=== PATIENT | female | born 1950 | race Caucasian/White ===

== ENCOUNTER 2019-11-20 19:10 | Emergency (ER) | payer MEDICARE, SELFPAY ==
[2019-11-20 19:20] VITALS: BP 135/71; PULSE 58; RESP 18; TEMP 36.7; O2SAT 99
--- NOTE | 2019-11-20 19:46 | ED.GENADULT ---
HPI - General Adult General Chief complaint: Skin/Abscess/Foreign Body Stated complaint: cut to nose and eye Time Seen by Provider: 11/20/19 19:46 Source: patient and RN notes reviewed Mode of arrival: ambulatory Limitations: no limitations History of Present Illness HPI narrative: 69-year-old female present with complaints of laceration to bridge of nose caused by hitting nose on floor when she fell getting out the shower approximately 1 hour ago. Pressure applied to wound to control bleeding. Denies hitting head or loss of consciousness. Denies blurred vision, double vision, dizziness, or seizure activity. Denies vertigo or immobility. Denies pain, numbness or tingling, or weakness of upper or lower extremities. No foreign body sensation. Tetanus not up-to-date, last one unknown and she refuses it now (wants to speak with her PMD). Denies fever or chills. Denies diarrhea, nausea, vomiting, and abdominal pain. Tolerating po intake well. Denies headaches, weakness, fatigue, myalgia, or facial swelling. Denies chest pain or dyspnea. Denies cough, rhinorrhea, congestion, sore throat. Denies recent traveling. Denies concern for COVID-19 or exposures been home since [id number] order except for essential household needs and return home. Some parts of this dictation were generated by voice recognition software and may contain typographical and/or grammatical inaccuracies Related Data Home Medications Medication Instructions Recorded Confirmed aspirin 81 mg PO DAILY 11/20/19 11/20/19 atorvastatin 20 mg PO HS 11/20/19 11/20/19 cholecalciferol (vitamin D3) 50 mcg PO DAILY 11/20/19 11/20/19 [Vitamin D3] clobetasol 1 applic TOPICAL BID 11/20/19 11/20/19 levothyroxine 75 mcg PO DAILY 11/20/19 11/20/19 metronidazole 1 applic TOPICAL BID 11/20/19 11/20/19 omega 2-azj-ndv-fish oil [Fish Oil] 1 cap PO DAILY 11/20/19 11/20/19 trazodone 100 mg PO HS 11/20/19 11/20/19 valsartan-hydrochlorothiazide 1 tablet PO DAILY 11/20/19 11/20/19 Allergies Allergy/AdvReac Type Severity Reaction Status Date / Time Sulfa (Sulfonamide Allergy Shakiness Verified 11/20/19 19:32 Antibiotics) Review of Systems Review of Systems: Narrative: CONSTITUTIONAL: Denies fever, chills, sweats. EYES: Denies visual changes, redness, discharge. ENT: Denies rhinorrhea, congestion, sore throat, otalgia. CARDIOVASCULAR: Denies chest pain, palpitations, edema. RESPIRATORY: Denies dyspnea, wheezing, cough. GASTROINTESTINAL: Denies abdominal pain, nausea, vomiting, diarrhea. GENITOURINARY: Denies dysuria, hematuria, abnormal discharge. SKIN: Complains of laceration to bridge of nose. MUSCULOSKELETAL: Denies acute back pain, joint pain, or myalgia. NEUROLOGIC: Denies numbness, or focal weakness. PSYCHIATRIC: Denies anxiety or depression. All other systems reviewed & are unremarkable except as noted in HPI and below. [facility] Past Medical History Medical History (Updated 11/21/19 @ 14:08 by ANDREINA Winston) Anxiety Hypercholesteremia Hypertension Hypothyroidism Rosacea Surgical History Surgical History (Updated 11/21/19 @ 14:08 by ANDREINA Winston) History of adenoidectomy History of cholecystectomy History of eye surgery eye lift History of right knee surgery History of tonsillectomy Family History Family History (Updated 11/20/19 @ 20:09 by ANDREINA Winston) Father Leukemia Mother Bladder cancer Social History Social History (Updated 11/20/19 @ 20:09 by ANDREINA Winston) Smoking status: Never smoker Second hand tobacco smoke exposure: No Alcohol intake: current Substance use: never Living arrangements: with family Occupation/Education: retired Gender identity (if verbalized by the patient): Female Comments At time of signature, agree with nurse past medical, surgical, social, and family history. There is no relevant family history pertinent to the presenting co
== END 2019-11-20 20:05 | disposition home or self-care (01) ==
PROVIDERS: Emergency Provider Nurse Practitioner Family; PCP Internal Medicine
DX: S01.21XA Laceration without foreign body of nose, initial encounter (principal); W19.XXXA Unspecified fall, initial encounter; I10 Essential (primary) hypertension; E03.9 Hypothyroidism, unspecified; E78.00 Pure hypercholesterolemia, unspecified
CPT/HCPCS: 12011; 99212; G0463

== ENCOUNTER 2022-03-14 01:41 | Day surgery (SDC) | payer MEDICARE, SELFPAY ==
[2022-03-01 10:40] VITALS: BMI 28.9
--- NOTE | 2022-03-13 13:41 | PM.HPGS ---
History of Present Illness History of Present Illness Consent: Risks, benefits, and alternatives have been discussed and questions answered. Patient agrees to proceed with procedure. Chief complaint: hx colon polyps Narrative: Collette Hdz is a 71 year old female Referred for colon cancer screening. She has had a tubular adenoma removed about 10 years ago. Her last colonoscopy was 5 years ago. Review of Systems Review of Systems: All systems reviewed & are unremarkable except as noted in HPI and below PMFSH Past Medical History Medical History Anxiety Hypercholesteremia Hypertension Hypothyroidism Rosacea Surgical History Surgical History History of adenoidectomy History of cholecystectomy History of eye surgery eye lift History of right knee surgery History of tonsillectomy Family History Family History Father Leukemia Mother Bladder cancer Social History Social History Smoking status: Never smoker Second hand tobacco smoke exposure: No Alcohol intake: current Drinks per week: 10 Alcohol use details: 1-2 drinks daily Substance use: never Substance use type: does not use Living arrangements: with family Gender identity (if verbalized by the patient): Female Spiritual care concerns: No Meds Home Medications and Allergies Home Medications Medication Instructions Recorded Confirmed Type aspirin 81 mg chewable tablet 81 mg PO DAILY 11/20/19 03/01/22 History atorvastatin 20 mg tablet 20 mg PO HS 11/20/19 03/01/22 History cholecalciferol (vitamin D3) 50 50 mcg PO DAILY 11/20/19 03/01/22 History mcg (2,000 unit) tablet (Vitamin D3) clobetasol 0.05 % topical cream 1 applic topical BID 11/20/19 03/01/22 History levothyroxine 75 mcg tablet 75 mcg PO DAILY 11/20/19 03/01/22 History metronidazole 0.75 % topical gel 1 applic topical BID 11/20/19 03/01/22 History omega 0-xzp-ofg-fish oil 1,000 mg 1 cap PO DAILY 11/20/19 03/01/22 History (120 mg-180 mg) capsule (Fish Oil) trazodone 100 mg tablet 100 mg PO HS 11/20/19 03/01/22 History hydrochlorothiazide 25 mg tablet 25 mg PO DAILY 03/01/22 03/01/22 History losartan 50 mg tablet 50 mg PO DAILY 03/01/22 03/01/22 History Allergies Allergy/AdvReac Type Severity Reaction Status Date / Time Sulfa (Sulfonamide Allergy Shakiness Verified 03/14/22 09:33 Antibiotics) codeine AdvReac Nausea and Verified 03/14/22 09:33 Vomiting Exam Resp: Auscultation: clear to auscultation bilaterally Cardio: Rate: regular rate Rhythm: regular rhythm GI: GI Palp: Yes Soft to palpation and No Tenderness to palpation present (GI) Assessment and Plan Assessment and plan (1) Colon cancer screening: Code(s): Z12.11 - Encounter for screening for malignant neoplasm of colon Status: Acute Assessment and Plan: Colonoscopy with possible biopsy or polypectomy or cautery or injection of substances.
[2022-03-14 09:35] VITALS: BP 129/57; PULSE 58; RESP 18; TEMP 36.3; O2SAT 99
[2022-03-14] MEDS: LACTATED RINGERS 1,000 ML 150 ML IV CONT (09:46)
--- NOTE | 2022-03-14 10:44 | WPDANESEPPF ---
Anes - Initial Pre Proc Eval Procedure: Operation Date: 03/14/22 10:30 Proposed Procedures p Screening Colonoscopy - Gary Schmitt MD Date/Time: 03/14/22 10:44 Surgeon: Gary Schmitt MD Pre Op Diagnosis: hx colon polyps Patient Data Age: 71 Gender: F Height: 1.57 m Weight: 71.1 kg Last Vital Signs Temp 97.4 F L 03/14/22 09:35 Pulse 58 L 03/14/22 09:35 Resp 18 03/14/22 09:35 BP 129/57 L 03/14/22 09:35 Pulse Ox 99 03/14/22 09:35 O2 Del Method Room Air 03/14/22 09:35 Allergies Allergy/AdvReac Type Severity Reaction Status Date / Time Sulfa (Sulfonamide Allergy Shakiness Verified 03/14/22 09:33 Antibiotics) codeine AdvReac Nausea and Verified 03/14/22 09:33 Vomiting Home Medications Medication Instructions Recorded Confirmed Type aspirin 81 mg chewable tablet 81 mg PO DAILY 11/20/19 03/01/22 History atorvastatin 20 mg tablet 20 mg PO HS 11/20/19 03/01/22 History cholecalciferol (vitamin D3) 50 50 mcg PO DAILY 11/20/19 03/01/22 History mcg (2,000 unit) tablet (Vitamin D3) clobetasol 0.05 % topical cream 1 applic topical BID 11/20/19 03/01/22 History levothyroxine 75 mcg tablet 75 mcg PO DAILY 11/20/19 03/01/22 History metronidazole 0.75 % topical gel 1 applic topical BID 11/20/19 03/01/22 History omega 9-xbm-azx-fish oil 1,000 mg 1 cap PO DAILY 11/20/19 03/01/22 History (120 mg-180 mg) capsule (Fish Oil) trazodone 100 mg tablet 100 mg PO HS 11/20/19 03/01/22 History hydrochlorothiazide 25 mg tablet 25 mg PO DAILY 03/01/22 03/01/22 History losartan 50 mg tablet 50 mg PO DAILY 03/01/22 03/01/22 History Patient hx anesthesia problems: none Family hx anesthesia problems: none Results Review: All pre-operative results and documents have been reviewed as part of the pre-operative evaluation. [facility] Past Medical History Medical History Anxiety Hypercholesteremia Hypertension Hypothyroidism Rosacea Surgical History Surgical History History of adenoidectomy History of cholecystectomy History of eye surgery eye lift History of right knee surgery History of tonsillectomy Family History Family History Father Leukemia Mother Bladder cancer Social History Social History Smoking status: Never smoker Second hand tobacco smoke exposure: No Alcohol intake: current Drinks per week: 10 Alcohol use details: 1-2 drinks daily Substance use: never Substance use type: does not use Living arrangements: with family Gender identity (if verbalized by the patient): Female Spiritual care concerns: No Anes - Eval Final PreProcedure Day of Procedure 03/14/22 10:44 Patient weight: normal Heart: regular rate and rhythm Lungs: clear to auscultation Airway: Mallampati scale class II Neurological: alert and oriented Last oral intake: >/= 8 hours ASA classification: II Emergent: no Anesthetic plan: proceed Anesthesia type and monitoring: general GIVS and standard monitoring Results Review: All pre-operative results and documents have been reviewed as part of the pre-operative evaluation. Informed Consent: The patient's anesthetic plan and its attendant risks and benefits were discussed with the patient/family/POA. Questions were solicited and answers provided to the satisfaction of the patient/family/POA.
[2022-03-14 10:50] VITALS: BP 81/33; PULSE 46; RESP 15; O2SAT 98
[2022-03-14 11:00] VITALS: BP 80/37; PULSE 46; RESP 17; O2SAT 97
[2022-03-14 11:10] VITALS: BP 118/49; PULSE 50; RESP 17; O2SAT 100
== END 2022-03-14 11:26 | disposition home or self-care (01) ==
PROVIDERS: PCP Family Medicine; Visit Provider Internal Medicine Gastroenterology
PROC: 0DJD8ZZ Inspection of Lower Intestinal Tract, Via Natural or Artificial Opening Endoscopic (ICD-10-PCS; CPT 45378; principal; 2022-03-14 10:30)
DX: Z12.11 Encounter for screening for malignant neoplasm of colon (principal); Z86.010 Personal history of colon polyps; I10 Essential (primary) hypertension; E78.00 Pure hypercholesterolemia, unspecified; E03.9 Hypothyroidism, unspecified; K57.30 Diverticulosis of large intestine without perforation or abscess without bleeding; L71.9 Rosacea, unspecified; F41.9 Anxiety disorder, unspecified; Z90.49 Acquired absence of other specified parts of digestive tract
CPT/HCPCS: G0105; J2704; J7120

== ENCOUNTER 2024-10-20 13:10 | Outpatient (CLI) | payer MEDICARE, SELFPAY ==
--- NOTE | ~2024-10-20 | MM_ITS ---
EXAMINATION: MM screening merly BI w katherine HISTORY: Screening TECHNIQUE: Craniocaudal and mediolateral oblique 3-D tomosynthesis images were obtained and synthetic 2-D images were generated. CAD analysis was submitted and interpreted. COMPARISON: Comparison to multiple prior studies sequentially, with oldest reviewed study dated 11/2021. BREAST PARENCHYMAL COMPOSITION: Not dense: There are scattered areas of fibroglandular density. FINDINGS: There is no evidence of suspicious mass, calcification, or architectural distortion to sugg est malignancy in either breast. There has been no suspicious interval change. IMPRESSION: 1. No mammographic evidence of malignancy. 2. Recommend routine screening mammography in one year. BI-RADS Category 1: Negative Reviewed, dictated and finalized at location B.
== END 2024-10-20 13:11 | disposition home or self-care (01) ==
PROVIDERS: PCP Family Medicine; Visit Provider Obstetrics & Gynecology
DX: Z12.31 Encounter for screening mammogram for malignant neoplasm of breast (principal)
CPT/HCPCS: 77063; 77067

== ENCOUNTER 2025-06-16 12:25 | Outpatient (CLI) | payer MEDICARE, SELFPAY ==
--- NOTE | ~2025-06-16 | DEXA_ITS ---
Bone Density Report Name: VERÓNICA MARTIN Age: 74 Sex: Female Ethnicity: White Date of : 1950 Indication: postmenopausal; screening for osteoporosis; height loss; cancer; Referring Provider: Rishi, Teofilo Cerda Study: Bone densitometry was performed. Exam Date: June 16, 2025 Accession number: [id number] Bone Density: Region BMD T-score Z-score Classification AP Spine(L1-L4) 1.154 1.0 3.4 Normal Femoral Neck (Left) 0.681 -1.5 0.6 Osteopenia Total Hip (Left) 0.879 -0.5 1.3 Normal Femoral Neck (Right) 0.697 -1.4 0.8 Osteopenia Total Hip (Right) 0.854 -0.7 1.1 Normal Total Hip Mean 0.866 -0.6 1.2 Normal World Health Organization criteria for BMD impression classify patients as: Normal (T-score at or above -1.0), Osteopenia (T-score between -1.0 and -2.5), or Osteoporosis (T-score at or below -2.5). 10-year Fracture Risk(1): Major Osteoporotic Fracture 12% Hip Fracture 2.4% Reported Risk Factors: [place] (), Neck BMD=0.681, BMI=28.7 (1) FRAX(R) Version 3.08. Fracture probability calculated for an untreated patient. Fracture probability may be lower if the patient has received treatment. Previous Exams: -- Region Exam Age BMD T-score BMD Change BMD Change Date g/cm2 vs Baseline vs Previous -- AP Spine (L1-L4) 06/16/2025 74 1.154 1.0 -3.2%* -3.2%* 11/13/2017 67 1.192 1.3 Total Hip(Left) 06/16/2025 74 0.879 -0.5 -6.5%* -6.5%* 11/13/2017 67 0.940 0.0 Total Hip(Right) 06/16/2025 74 0.854 -0.7 -7.6%* -7.6%* 11/13/2017 67 0.924 -0.2 -- *Denotes significance at 95% confidence level, LSC for AP Spine = 0.022 g/cm2, LSC for Total Hip = 0.027 g/cm2 Clinical Information Provided by Patient: Has used the following medications: Vitamin D Has the following medical conditions: Cancer, basal cell cancer Patient maximum height was 63 Menopause Age: 49 No regular weight bearing exercise Does not regularly consume dairy products Drinks caffeinated beverages Onset of menses at age 12 Number of children 0 Impression: The patient has low bone mass, based on the Left Femoral Neck T-score. The patient has an estimated ten-year risk of hip fracture of 2.4% and an estimated ten-year risk of major fracture of 12%, based on the WHO FRAX algorithm. The BMD for the AP Spine (L1-L4) decreased, changing by -3.2% since the last DXA exam. The BMD for the Total Hip(Left) decreased, changing by -6.5% since the last DXA exam. The BMD for the Total Hip(Right) decreased, changing by -7.6% since the last DXA exam. Discussion: BONE DENSITY IS LOW AT ONE OR MORE SKELETAL SITES. This patient's lowest T-score is low at one or more skeletal sites. It meets the World Health Organization's (WHO) criteria for ?low bone mass? (T-score between -1.0 and -2.5). The patient's 10-year risk of fracture as calculated by FRAX is less than the threshold where pharmacological therapy is recommended by the National Osteoporosis Foundation (NOF). However, all treatment decisions require clinical judgment and consideration of individual patient factors, including patient preferences, comorbidities, previous drug use, risk factors not captured in the FRAX model (e.g., frailty, falls, vitamin D deficiency, increased bone turnover, interval significant decline in bone density) and possible under or overestimation of fracture risk by FRAX. The patient should follow a healthful lifestyle (good nutrition with adequate calcium and vitamin D, and appropriate weight-bearing exercise). Follow-Up: Consider repeating this study in 2 years to reassess this patient's status, or sooner if there is some new clinical indication. Reported by: BRII on 06/16/2025 12:49:00 PM. Reviewed, dictated and finalized at location A.
== END 2025-06-16 12:26 | disposition home or self-care (01) ==
LOC: MICIMG 12:26
PROVIDERS: PCP Family Medicine; Visit Provider Family Medicine
DX: Z78.0 Asymptomatic menopausal state (principal); M85.852 Other specified disorders of bone density and structure, left thigh; M85.851 Other specified disorders of bone density and structure, right thigh
CPT/HCPCS: 77080